=== PATIENT | female | born 1995 | race Caucasian/White ===

== ENCOUNTER 2016-10-28 11:04 | Outpatient (CLI) | payer OTHER ==
--- NOTE | 2016-10-28 12:45 | Non Stress Test Report ---
Non Stress Test Datetime Report Generated by CPN: 10/28/2016 12:44 DEMOGRAPHIC EGA NST: 40.2 INDICATION Indication for Study: Ordered by Provider MONITORING Monitor Explained: Monitor Explained; Test Explained; Patient Verbalized Understanding Time on Monitor: 10/28/2016 11:15 Time off Monitor: 10/28/2016 12:16 NST Duration: 61 NST INTERVENTIONS NST Interventions: PO Hydration; Reposition Patient Physician Notified NST: A EMMEL, CNM REVIEWED STRIP BABY A: [id number] BABY A Movement : Present Contraction Frequency : NONE FHR Baseline : 135 Accelerations : 15X15 Decelerations : None Variability : Moderate 6-25bpm NST Review: Meets Criteria for Reactive NST NST Review and Verified By : Darrell Thurman RN NST Results: Reactive NST REPORT Report Trigger: Send Report
== END 2016-10-28 12:25 | disposition home or self-care (01) ==
LOC: LC 11:04
PROVIDERS: ATTEND Obstetrics & Gynecology
PROC: 4A1HXCZ Monitoring of Products of Conception, Cardiac Rate, External Approach (ICD-10-PCS; principal; 2016-10-28)
DX: O48.0 Post-term pregnancy (principal); Z3A.40 40 weeks gestation of pregnancy
CPT/HCPCS: 59025

== ENCOUNTER 2016-10-31 16:28 | Outpatient (CLI) | payer OTHER ==
[2016-10-31 17:36] LABS: APPEARANCE,URINE SLIGHTLY-CLOUDY; BILIRUBIN,URINE NEGATIVE (NEGATIVE); GLUCOSE, URINE NEGATIVE (NEGATIVE); KETONES,URINE NEGATIVE (NEGATIVE); LEUKOCYTE ESTERASE,URINE MODERATE (NEGATIVE); NITRITE,URINE NEGATIVE (NEGATIVE); PROTEIN,URINE NEGATIVE (NEGATIVE); URINE SPECIFIC GRAVITY 1.011; UROBILINOGEN,URINE NEGATIVE mg/dL (<2.0)
[2016-10-31 17:54] LABS: URINE BARBITURATES SCREEN NEGATIVE; URINE METHADONE SCREEN NEGATIVE; URINE OPIATES LOW NEGATIVE; URINE PHENCYCLIDINE SCREEN NEGATIVE
== END 2016-10-31 17:08 | disposition home or self-care (01) ==
LOC: LC 16:28
PROVIDERS: ATTEND Student in an Organized Health Care Education/Training Program
PROC: 4A1HXCZ Monitoring of Products of Conception, Cardiac Rate, External Approach (ICD-10-PCS; principal; 2016-10-31)
DX: O48.0 Post-term pregnancy (principal); Z3A.40 40 weeks gestation of pregnancy
CPT/HCPCS: 59025; 80307; 81001

== ENCOUNTER 2016-11-03 18:38 | Inpatient (IN) | payer OTHER ==
[2016-11-03] MEDS ORDERED: RINGERS SOLUTION,LACTATED 300 ML IV ONE (19:15)
[2016-11-03] MEDS ORDERED: RINGERS SOLUTION,LACTATED 1,000 ML IV PRN (19:15)
[2016-11-03] MEDS ORDERED: DINOPROSTONE 10 MG VAGINAL INSERT.SR PV PRN (19:15)
[2016-11-03] MEDS ORDERED: OXYTOCIN/NORMAL SALINE 1,000 ML IV PRN (19:15)
[2016-11-03 19:54] LABS: APPEARANCE,URINE CLOUDY; BILIRUBIN,URINE NEGATIVE (NEGATIVE); GLUCOSE, URINE NEGATIVE (NEGATIVE); KETONES,URINE NEGATIVE (NEGATIVE); LEUKOCYTE ESTERASE,URINE LARGE (NEGATIVE); NITRITE,URINE NEGATIVE (NEGATIVE); PROTEIN,URINE NEGATIVE (NEGATIVE); URINE SPECIFIC GRAVITY 1.021; UROBILINOGEN,URINE NEGATIVE mg/dL (<2.0)
[2016-11-03] MEDS ORDERED: DINOPROSTONE 10 MG VAGINAL INSERT.SR ONE (19:55)
[2016-11-03 20:09] LABS: URINE BARBITURATES SCREEN NEGATIVE; URINE METHADONE SCREEN NEGATIVE; URINE OPIATES LOW NEGATIVE; URINE PHENCYCLIDINE SCREEN NEGATIVE
[2016-11-03 20:18] LABS: ABSOLUTE EOSINOPHILS # (AUTO) 0.1 10^3/uL (0.0-0.6); ABSOLUTE LYMPHOCYTES (AUTO) 2.2 10^3/uL (0.5-4.7); ABSOLUTE MONOCYTES (AUTO) 0.7 10^3/uL (0.1-1.4); ABSOLUTE NEUT (AUTO) 7.9 10^3/uL (1.7-8.2); BASOPHILS % (AUTO) 0.2 % (0-2); EOSINOPHILS % (AUTO) 0.5 % (0-6); HEMATOCRIT 38.2 % (36.0-47.0); HEMOGLOBIN 12.6 g/dL (12.0-15.5); HGB HCT DIFFERENCE -0.4; LYMPHOCYTES % (AUTO) 20.4 % (13-45); MEAN CORPUSCULAR HEMOGLOBIN 26.4 pg (27.0-33.4); MEAN CORPUSCULAR HGB CONC 33.1 g/dL (32.0-36.0); MEAN CORPUSCULAR VOLUME 80 fl (80-97); MONOCYTES % (AUTO) 6.2 % (3-13); RED BLOOD COUNT 4.78 10^6/uL (3.72-5.28); RED CELL DISTRIBUTION WIDTH 14.3 % (11.5-14.0); SEGMENTED NEUTROPHILS % (AUTO) 72.7 % (42-78); WHITE BLOOD COUNT 10.9 10^3/uL (4.0-10.5)
[2016-11-03] MEDS ORDERED: ZOLPIDEM TARTRATE 5 MG TABLET PO ONE (22:22)
[2016-11-03] MEDS ORDERED: ZOLPIDEM TARTRATE 5 MG TABLET ONE (22:32)
[2016-11-04] MEDS ORDERED: MISOPROSTOL 0.1 MG TABLET ONE ×2 (09:14→20:29)
[2016-11-04] MEDS: MISOPROSTOL 0.1 MG TABLET PO SCH ×2 (09:15→13:25)
--- NOTE | 2016-11-04 18:55 | L&D Progress Notes ---
PROGRESS NOTES Datetime Report Generated by CPN: 11/04/2016 18:55 PROGRESS NOTE Impression: Reassuring Heart Rate Procedures: Sterile Vag Exam Plan: Continue Present Management; Induction Vital Signs : Reviewed; Within Normal Limits Comment: Minimal change in cervical dilation after cytotec Cervidil over night Plan for pitocin in am VAGINAL EXAM Dilatation: 2 Dilatation: 1 Effacement: 80 Effacement: 0 Station: -1 Station: high Contractions: irregularg MEMBRANES Membranes: Intact FETUS A FHR - Baseline: 145 Monitoring: External US Variability: Moderate 6-25bpm Accelerations: 15X15 Decelerations: None FHR Category: Category I : 41.0 Presentation: Vertex SIGNATURE SIGNATURE: [id number];[id number] SIGNATURE: [id number] Assignment: Gil Arita DO Signature: with User ID: [email or web address] : with User ID: [email or web address]
[2016-11-04] MEDS ORDERED: ZOLPIDEM TARTRATE 5 MG TABLET PO ONE (20:46)
[2016-11-04] MEDS ORDERED: ZOLPIDEM TARTRATE 5 MG TABLET ONE (20:58)
[2016-11-04] MEDS ORDERED: DIPHENHYDRAMINE HCL 50 MG/ML VIAL IV ONE (21:46)
[2016-11-04] MEDS ORDERED: NALBUPHINE HCL INJ 10 MG/1 ML AMPULE INJ ONE (21:46)
[2016-11-04] MEDS ORDERED: DIPHENHYDRAMINE HCL 50 MG/ML VIAL ONE (21:50)
[2016-11-04] MEDS ORDERED: NALBUPHINE HCL INJ 10 MG/1 ML AMPULE ONE (21:50)
[2016-11-05] MEDS ORDERED: MISOPROSTOL 0.1 MG TABLET ONE (00:18)
[2016-11-05] MEDS ORDERED: PHENYLEPHRINE HCL INJ/PF 10 MG/1 ML SDV ONE (00:39)
[2016-11-05] MEDS ORDERED: FENTANYL CITRATE INJ/PF 100 MCG/2 ML AMPUL ONE ×2 (00:39→05:05)
[2016-11-05] MEDS ORDERED: EPHEDRINE SULFATE INJ 50 MG/1 ML AMPULE ONE ×2 (00:39→05:05)
[2016-11-05] MEDS ORDERED: BUPIVACAINE HCL 0.25 % INJ/PF (2.5 MG/1 ML) 30 ML VIAL ONE (00:40)
[2016-11-05] MEDS ORDERED: FENTANYL/BUPIVACAINE/NS/PF 200 MCG/100 ML RTUINJ EPI ONE (00:40)
[2016-11-05] MEDS ORDERED: MISOPROSTOL 0.2 MG TABLET ONE (00:42)
[2016-11-05] MEDS ORDERED: LIDOCAINE 1% INJ-PF (10 MG/ML) 30 ML SDV ONE (00:42)
[2016-11-05] MEDS ORDERED: OXYTOCIN/NORMAL SALINE 0 UNIT/0 ML RTUINJ ONE (00:42)
[2016-11-05] MEDS ORDERED: CITRIC ACID/SODIUM CITRATE ORAL SOLN 15 ML UDCUP ONE (04:48)
[2016-11-05] MEDS ORDERED: CLINDAMYCIN 900 MG/D5W RTU 50 ML IV ONE (04:48)
[2016-11-05] MEDS ORDERED: CITRIC ACID/SODIUM CITRATE ORAL SOLN 15 ML UDCUP PO ONE (04:58)
[2016-11-05] MEDS ORDERED: CLINDAMYCIN 900 MG/D5W RTU 50 ML IV PRN (04:58)
[2016-11-05] MEDS ORDERED: FENTANYL CITRATE INJ/PF 250 MCG/5 ML AMPULE ONE (05:05)
[2016-11-05] MEDS ORDERED: MIDAZOLAM 2 MG/2 ML INJ ONE (05:05)
[2016-11-05] MEDS ORDERED: OXYTOCIN 10 UNIT/ML VIAL ONE (05:05)
[2016-11-05] MEDS ORDERED: OXYTOCIN/NORMAL SALINE 20 UNIT/1,000 ML RTUINJ ONE (05:06)
[2016-11-05] MEDS ORDERED: ONDANSETRON HCL INJ/PF 4 MG/2 ML SDV ONE (05:06)
[2016-11-05] MEDS ORDERED: SODIUM BICARBONATE 8.4% INJ 50 MEQ/50 ML DISP.SYRIN ONE (05:10)
[2016-11-05] MEDS ORDERED: LIDOCAINE 2%/EPINEPHRINE INJ 20 ML VIAL ONE (05:10)
[2016-11-05] MEDS ORDERED: PROMETHAZINE HCL INJ 25 MG/1 ML VIAL IV PRN ×2 (05:11→05:59)
[2016-11-05] MEDS ORDERED: MEPERIDINE HCL/PF INJ 25 MG/1 ML DISP.SYRIN IV PRN (05:11)
[2016-11-05] MEDS ORDERED: DIPHENHYDRAMINE HCL 50 MG/ML VIAL IV PRN (05:11)
[2016-11-05] MEDS ORDERED: MORPHINE SULFATE 10 MG/ML INJ IV PRN (05:11)
[2016-11-05] MEDS ORDERED: FENTANYL CITRATE INJ/PF 100 MCG/2 ML AMPUL IV PRN ×3 (05:11)
[2016-11-05] MEDS ORDERED: DIPH/PERTUSS(ACELL)/TETANUS VAC/PF 0.5 ML SYR (>=10YO) IM PRN (05:59)
[2016-11-05] MEDS ORDERED: SIMETHICONE 80 MG TAB.CHEW PO PRN (05:59)
[2016-11-05] MEDS ORDERED: ACETAMINOPHEN 325 MG TABLET PO PRN (05:59)
[2016-11-05] MEDS ORDERED: OXYTOCIN/NORMAL SALINE 20 UNIT/1,000 ML RTUINJ IV PRN (05:59)
[2016-11-05] MEDS ORDERED: MEASLES,MUMPS&RUBELLA VACC/PF 0.5 ML VIAL SUBCUT PRN (05:59)
[2016-11-05] MEDS ORDERED: OXYCODONE-ACETAMINOPHEN 5-325 MG TABLET PO PRN (05:59)
--- NOTE | 2016-11-05 07:17 | Delivery Summary ---
Del Sum A-C Datetime Report Generated by CPN: 11/05/2016 07:17 DELIVERY PERSONNEL DELIVERY PERSONNEL: [id number];[id number];[id number] Delivery Doctor:: Gil Arita DO Anesthesiologist:: Ruth Ann Brantley MD PRICE LISTER:: Henry Simpson CRNA Labor and Delivery Nurse:: Suzi Olivares RN Neonatal Nurse Practitioner:: FREDDY Crawford Director Private/SYSTEMS DESIGNER: ST Ana Cristina Director Private/SYSTEMS DESIGNER: Erika Avery RADIATION ONCOLOGY NURSE Additional Personnel: : THELMA TonyA MATERNAL INFORMATION Delivery Anesthesia: Epidural Medications After Delivery: Pitocin Drip 20 Units/1000ml NSS Estimated Blood Loss (ml): 600 Maternal Complications: None LABOR SUMMARY EDC: 10/26/2016 00:00 No. Babies in Womb: 1 Attempted: No Labor Anesthesia: Epidural LABOR INFORMATION Reason for Induction: Post Dates Onset of Labor: 11/04/2016 22:43 Cervical Ripening Agents: Cervidil; Cytotec @ Oxytocin: N/A Group B Beta Strep: Negative (Annotations: Data stored by [facility] on behalf of user) Antibiotics # of Doses: n/a Antibiotics Time of Last Dose: n/a Steroids Given: None Reason Steroids Not Administered: Not Applicable MEMBRANES Membranes Rupture Method: Spontaneous Rupture of Membranes: 11/04/2016 22:43 Length of Rupture (hr): 6.73 Amniotic Fluid Color: Clear Amniotic Fluid Amount: Small Amniotic Fluid Odor: Normal STAGES OF LABOR Stage 3 hr: 0 Stage 3 min: 1 Total Time in Labor hr: 6 Total Time in Labor min: 45 VAGINAL DELIVERY Episiotomy: None Laceration Extension: N/A Laceration Type: None Laceration Repair: Not Applicable Sponge Count Correct: N/A Sharps Count Correct: N/A CSECTION DELIVERY Primary Indication: Nonreassuring Status CSection Urgency: Non-Scheduled CSection Incidence: Primary Labor: Labor Elective: Nonelective CSection Incision: Lower Uterine Transverse BABY A INFORMATION Infant Delivery Date/Time: 11/05/2016 05:27 Method of Delivery: Born in Route : No : N/A Forceps: N/A Vacuum Extraction: N/A Shoulder Dystocia : No PRESENTATION/POSITION BABY A Presentation: Cephalic Cephalic Presentation: Vertex Breech Presentation: N/A PLACENTA INFORMATION BABY A Placenta Delivery Time : 11/05/2016 05:28 Placenta Method of Delivery: Manual Removal Placenta Status: Delivered SCORES BABY A Heart Rate 1 min: >100 bpm Resp Effort 1 min: Good Cry Reflex Irritability 1 min: Cough or Sneeze or Pulls Away Muscle Tone 1 min: Active Motion Color 1 min: Blue/Pale Resuscitation Effort 1 min: Tactile Stimulation SCORE 1 MIN: 8 Heart Rate 5 min: >100 bpm Resp Effort 5 min: Good Cry Reflex Irritability 5 min: Cough or Sneeze or Pulls Away Muscle Tone 5 min: Active Motion Color 5 min: Body [place], Extremities Blue Resuscitation Effort 5 min: Tactile Stimulation SCORE 5 MIN: 9 INFORMATION BABY A Gestational Age at Delivery: 41.3 Gestational Status: Late Term- 41- 41.6 Weeks Infant Outcome : Liveborn Condition : Stable Sex: Female IDENTIFICATION BABY A Infant Verification Date/Time: 11/05/2016 05:35 ID Band Number: [id number] Mother's Name Verified: Yes RN Verifying : S. Lattibeaudeir, RN _ C. Curly, RN WEIGHT/LENGTH BABY A Infant Birthweight (gm): 2750 Weight (lb): 6 Infant Weight (oz): 1 Infant Length (in): 19.50 Infant Length (cm): 49.53 CORD INFORMATION BABY A No. Cord Vessels: 3 Nuchal Cord : Around Neck x1, Tight Cord Blood Taken: Yes-For Storage (Mom's Blood type +) Infant Suction: None ASSESSMENT BABY A Complications: Multiple Late Decels; Multiple Variable Decels Respirations: Appears Normal Lining Scrubber/ALS Called : No Transferred To: Nursery BABY B INFORMATION : N/A
--- NOTE | 2016-11-05 08:32 | Admission Physical ---
Datetime Report Generated by CPN: 11/05/2016 08:32 CURRENT ADMISSION Chief Complaint: Other Chief Complaint Other: post dates Indication for Induction: Post Dates Admit Plan: Admit to Unit; Initiate Labor Protocol ALLERGIES Medication Allergies: Yes Medication Allergies: Penicillins/WI/Hives (10/31/2016) Medication Allergies: Penicillins/WI/Hives (05/27/2014) Latex: No Latex Allergies Food Allergies: denies Environmental Allergies: denies OBSTETRICAL HISTORY EDC: 10/26/2016 00:00 : 1 Para: 0 Term: 0 : 0 SAB: 0 IAB: 0 Ectopic: 0 Livin Cesareans: 0 VBACs: 0 Multiple Births: 0 Gestational Diabetes: No Rh Sensitization: No Incompetent Cervix: No MI: No Infertility: No ART Treatment: No Uterine Anomaly: No IUGR: No Hx Previous C/S: No Macrosomia: No Hx Loss/Stillborn: No PIH: No Hx : No Placenta Previa/Abruption: No Depression/PP Depression: No PTL/PROM: No Post Hemorrhage: No Current Procedures: Ultrasound; NST Obstetrical History Comments: G1: current SEE RECORDS Alcohol: No Marijuana : No Cocaine: No Other Illicit Drugs: No Cigarettes: Never Smoker. [id number] MEDICAL HISTORY Diabetes: No Blood Transfusion: No Pulmonary Disease (Asthma, TB): No Breast Disease: No Hypertension: No Billing Associate Surgery: No Heart Disease: No Hosp/Surgery: No Autoimmune Disorder: No Anesthetic Complications: No Kidney Disease: No Abnormal Pap Smear: No Neuro/Epilepsy: No Psychiatric Disorders: No Other Medical Diseases: No Hepatitis/Liver Disease: No Significant Family History: No Varicosities/Phlebitis: No Trauma/Violence : No Thyroid Dysfunction: No Medical History Comments: colonoscopy/endoscopy: 2015, scoliosis INFECTIOUS HISTORY Gonorrhea: No Genital Herpes: No Chlamydia: No Tuberculosis: No Syphilis: No Hepatitis: No HIV/AIDS Exposure: No Rash or Viral Illness: No HPV: No PHYSICAL EXAM General: Normal HEENT: Normal Neurologic: Normal Thyroid: Normal Heart: Normal Lungs: Normal Breast: Deferred Back: Normal Abdomen: Normal Genitourinary Exam: Normal Extremities: Normal DTRs: Normal Pelvic Type: Adequate VAGINAL EXAM Dilatation: 2 Dilatation: 1 Effacement: 80 Effacement: 0 Station: -1 Station: high Contraction Comments: irregularg MEMBRANES Membranes: Intact FETUS A EGA: 41.1 Monitoring: External US FHR- Baseline: 150 Variability: Moderate 6-25bpm FHR Category: Category I Presentation: Vertex Admit Comment: EFW is 8.5 lbs PLANS FOR LABOR AND DELIVERY Labor and Delivery: None Pain Management: Epidural Feeding Preference: Formula Benefit of Breast Feed Discussed: Yes Circumcision: N/A INFORMED CONSENT Signature: with User ID: [email or web address]
[2016-11-05] MEDS: KETOROLAC TROMETHAMINE INJ/PF 30 MG/1 ML SDV IV SCH ×3 (09:09→22:08)
[2016-11-05] MEDS: PRENATAL VITAMIN W-O CA NO5/FE FUMARATE/FA CAPSULE PO SCH (09:09)
[2016-11-05] MEDS: DOCUSATE SODIUM 100 MG CAPSULE PO SCH ×2 (09:10→17:40)
[2016-11-05] MEDS: HYDROMORPHONE HCL INJ/PF 2 MG/ML AMPULE IV PRN ×2 (10:32→16:33)
[2016-11-05] MEDS: OXYCODONE-ACETAMINOPHEN 5-325 MG TABLET PO PRN (23:19)
[2016-11-06] MEDS: KETOROLAC TROMETHAMINE INJ/PF 30 MG/1 ML SDV IV SCH (06:01)
[2016-11-06] MEDS: OXYCODONE-ACETAMINOPHEN 5-325 MG TABLET PO PRN ×3 (06:40→20:07)
[2016-11-06 07:10] LABS: HEMATOCRIT 31.2 % (36.0-47.0); HGB HCT DIFFERENCE -0.3; MEAN CORPUSCULAR HEMOGLOBIN 26.6 pg (27.0-33.4); MEAN CORPUSCULAR HGB CONC 33.1 g/dL (32.0-36.0); MEAN CORPUSCULAR VOLUME 80 fl (80-97); RED BLOOD COUNT 3.89 10^6/uL (3.72-5.28); RED CELL DISTRIBUTION WIDTH 14.4 % (11.5-14.0); WHITE BLOOD COUNT 14.1 10^3/uL (4.0-10.5)
[2016-11-06 07:24] LABS: HEMOGLOBIN 10.3 g/dL (12.0-15.5)
--- NOTE | 2016-11-06 09:04 | PDOC PROGRESS REPORT ---
Subjective-OB Subjective: Post Delivery Day: 21 year old. Denies any needs at this time Physical Exam (OB) Vital Signs: Temp Pulse Resp BP Pulse Ox 97.4 F 80 15 116/68 100 11/06/16 08:19 11/06/16 08:19 11/06/16 08:19 11/06/16 08:19 11/06/16 08:19 Intake & Output 11/05/16 11/06/16 11/07/16 06:59 06:59 06:59 Intake Total 750 Output Total 2570 Balance -1820 - Dressing Removed: No - medipore dressing D&I, no drainage or swelling noted Incision: Dressing - Lochia Lochia Amount: Scant < 10 ml Lochia Color: Rubra/Red - Abdomen Description: Tender, Soft Hernia Present: No Bowel Sounds: Normoactive Flatus Presence: Present Stool: No Fundal Description: Firm, Midline Fundal Height: u/u - u/2 Objective-Diagnostic Laboratory: 11/06/16 06:52 11/06/16 06:52 WBC 14.1 H RBC 3.89 Hgb 10.3 L D Hct 31.2 L MCV 80 MCH 26.6 L MCHC 33.1 RDW 14.4 H Plt Count 123 L
[2016-11-06] MEDS: PRENATAL VITAMIN W-O CA NO5/FE FUMARATE/FA CAPSULE PO SCH (10:01)
[2016-11-06] MEDS: DOCUSATE SODIUM 100 MG CAPSULE PO SCH ×2 (10:01→17:34)
[2016-11-07] MEDS: OXYCODONE-ACETAMINOPHEN 5-325 MG TABLET PO PRN (06:57)
--- NOTE | 2016-11-07 09:30 | PDOC DISCHARGE SUMMARY ---
Final Diagnosis Discharge Date: 11/07/16 - Final Diagnosis (1) Acute blood loss anemia Is this a current diagnosis for this admission?: Yes (2) Delivery by emergency caesarean section Is this a current diagnosis for this admission?: Yes (3) Non-reassuring electronic monitoring tracing Is this a current diagnosis for this admission?: Yes Discharge Data - Discharge Medication Home Medications: Pnv No.122/Iron/Folic Acid [ Multi Tablet] 1 tab PO DAILY 10/31/16 Docusate Sodium [Colace 100 mg Capsule] 100 mg PO BID #60 capsule 11/07/16 Ferrous Sulfate [Feosol 325 mg Tablet] 325 mg PO DAILY #30 tab 11/07/16 Ibuprofen [Motrin 800 mg Tablet] 800 mg PO MEALS #90 tablet 11/07/16 Oxycodone HCl/Acetaminophen [Percocet 5-325 mg Tablet] 2 tab PO Q4HP PRN #30 tablet 11/07/16 Gestational Age: 41.3 Reason(s) for Admission: Induction of Labor Procedures: NST Intrapartum Procedure(s): : Low Cervical, Transverse - Data Baby 1 Female at 1 minute: 8 at 5 minutes: 9 Weight: 2750 kg Home with Mother: Yes Complications: No - Diagnosis Test Laboratory: Temp Pulse Resp BP Pulse Ox 98.6 F 107 H 15 120/76 97 11/07/16 07:47 11/07/16 07:47 11/07/16 07:47 11/07/16 07:47 11/07/16 07:47 11/03/16 11/03/16 11/06/16 19:08 19:41 06:52 RBC 4.78 3.89 Hgb 12.6 10.3 L D Hct 38.2 31.2 L Urine Opiates Screen NEGATIVE - Discharge information/Instructions Discharge Activity: Activity As Tolerated, Pelvic Rest, No tub bath Discharge Diet: Regular Disposition: HOME, SELF-CARE Follow up with: [facility] in: 1, Weeks
[2016-11-07] MEDS: PRENATAL VITAMIN W-O CA NO5/FE FUMARATE/FA CAPSULE PO SCH (10:02)
[2016-11-07] MEDS: DOCUSATE SODIUM 100 MG CAPSULE PO SCH (10:02)
[2016-11-07 10:44] VITALS: BP 120/74
--- NOTE | 2016-12-17 10:14 | OPERATIVE REPORT E ---
Operative Report NAME: JOSIAS HERNANDEZ : 1995 AGE: 21Y DATE OF SURGERY: 11/05/2016 ROOM: 222 PREOPERATIVE DIAGNOSIS: intolerance of labor. POSTOPERATIVE DIAGNOSIS: intolerance of labor. SURGEON: Gil Arita D.O. ELEVATOR CONDUCTOR: None. PROCEDURE: Primary low transverse section. ANESTHESIA: Epidural. COMPLICATIONS: None. PATHOLOGY: Placenta. ESTIMATED BLOOD LOSS: 600 mL. FINDINGS: 1. Viable female at 5:27 a.m. on 11/05/2016. Apgars 8 at one, 9 at five. 2. Loose nuchal cord x1. 3. Normal-appearing bilateral fallopian tubes and ovaries. DESCRIPTION OF PROCEDURE: The patient was taken to the operating room where she was placed in the dorsal supine position upon the operating table with a leftward tilt. Her epidural anesthesia was found to be adequate. She was then prepped and draped in a normal sterile fashion. A scalpel was then used to make a Pfannenstiel skin incision. The skin incision was carried down to the subcutaneous tissues to the layer of the fascia. The fascia was then incised in the midline. Fascial incision was then extended bilaterally using the Bovie cautery. The superior fascial edge was grasped with Geovany clamps, elevated, and the rectus muscles dissected off sharply and bluntly. Attention was then turned to the inferior fascial edge, which was grasped with Geovany clamps, elevated, and the rectus muscles dissected off sharply and bluntly. Rectus muscles were then in the midline, peritoneum identified and entered bluntly with the surgeon's hand. The bladder blade was inserted. A scalpel was then used to make a low transverse hysterotomy incision. The was found to be in cephalic position. The head was delivered atraumatically without difficulty. A loose nuchal cord was noticed and easily reduced. Rest of the infant's body was delivered atraumatically and without difficulty. The nose and mouth were suctioned. The cord was clamped and cut and the was handed off to the awaiting nurses. Cord blood was obtained. The placenta was then manually removed from the uterus. The uterus was then exteriorized and cleared of all clots and debris. The hysterotomy incision was then reapproximated using 2 layers of 1-0 Vicryl in running, locking fashion followed closure of the second layer, excellent hemostasis was noted. The uterus was then returned to the abdomen. Again, the hysterotomy incision was reinspected and found to have excellent hemostasis. Rectus muscles were then reapproximated using 1-0 Vicryl interrupted sutures. The fascia was then closed using 1-0 Vicryl in running, non-locking fashion. The subcutaneous spaces were made hemostatic using Bovie cautery. The skin was closed with absorbable shaquille, covered with an OpSite and then with a pressure dressing. At this point in time, the procedure was terminated. All sponge, lap, and needle counts were correct x2. The patient tolerated the procedure well. The patient was taken to the recovery room in stable condition. DICTATING PHYSICIAN: Gil Arita DO [id number] PHY#: [id number] ID: [id number] JOB#: [id number] ACCT: [id number] cc:Gil Arita D.O. >
== END 2016-11-07 11:50 | disposition home or self-care (01) | DRG 765 ==
LOC: LR 18:38 → 2S 11-05 08:03
PROVIDERS: ADMIT Obstetrics & Gynecology; ATTEND Obstetrics & Gynecology
PROC: 3E0P7GC Introduction of Other Therapeutic Substance into Female Reproductive, Via Natural or Artificial Opening (ICD-10-PCS; 2016-11-03)
PROC: 10D00Z1 Extraction of Products of Conception, Low, Open Approach (ICD-10-PCS; principal; 2016-11-05)
PROC: 4A1HXCZ Monitoring of Products of Conception, Cardiac Rate, External Approach (ICD-10-PCS; 2016-11-05)
DX: O76 Abnormality in fetal heart rate and rhythm complicating labor and delivery (principal); D62 Acute posthemorrhagic anemia; O48.0 Post-term pregnancy; O69.81X0 Labor and delivery complicated by cord around neck, without compression, not applicable or unspecified; O99.02 Anemia complicating childbirth; Z3A.41 41 weeks gestation of pregnancy; Z37.0 Single live birth; Z88.0 Allergy status to penicillin
CPT/HCPCS: 1961; 36415; 80307; 81005; 85025; 85027; 86592; 86850; 86900; 86901; 88307; 94799; J1170; J1200; J1885; J2250; J2300; J2370; J2405; J2590; J3010; J3490

== ENCOUNTER 2018-12-03 05:01 | Inpatient (IN) | payer BC ==
[2018-12-02 11:05] LABS: ABSOLUTE EOSINOPHILS # (AUTO) 0.1 10^3/uL (0.0-0.6); ABSOLUTE LYMPHOCYTES (AUTO) 1.7 10^3/uL (0.5-4.7); ABSOLUTE MONOCYTES (AUTO) 0.4 10^3/uL (0.1-1.4); ABSOLUTE NEUT (AUTO) 6.8 10^3/uL (1.7-8.2); BASOPHILS % (AUTO) 0.2 % (0-2); EOSINOPHILS % (AUTO) 0.7 % (0-6); HEMATOCRIT 36.2 % (36.0-47.0); LYMPHOCYTES % (AUTO) 18.7 % (13-45); MEAN CORPUSCULAR HEMOGLOBIN 26.6 pg (27.0-33.4); MEAN CORPUSCULAR HGB CONC 33.2 g/dL (32.0-36.0); MEAN CORPUSCULAR VOLUME 80 fl (80-97); MONOCYTES % (AUTO) 4.9 % (3-13); PLATELET COUNT 135 10^3/uL (150-450); RED BLOOD COUNT 4.53 10^6/uL (3.72-5.28); RED CELL DISTRIBUTION WIDTH 14.4 % (11.5-14.0); SEGMENTED NEUTROPHILS % (AUTO) 75.5 % (42-78); TOTAL CELLS COUNTED % (AUTO) 100 %
[2018-12-02 11:31] LABS: APPEARANCE,URINE CLOUDY; BILIRUBIN,URINE NEGATIVE (NEGATIVE); COLOR,URINE AMBER; GLUCOSE, URINE NEGATIVE (NEGATIVE); KETONES,URINE NEGATIVE (NEGATIVE); LEUKOCYTE ESTERASE,URINE MODERATE (NEGATIVE); NITRITE,URINE NEGATIVE (NEGATIVE); PROTEIN,URINE 30 mg/dL (NEGATIVE); URINE SPECIFIC GRAVITY 1.021
[2018-12-02 11:51] LABS: URINE AMPHETAMINES SCREEN NEGATIVE; URINE BARBITURATES SCREEN NEGATIVE; URINE BENZODIAZEPINES SCREEN NEGATIVE; URINE COCAINE SCREEN NEGATIVE; URINE MARIJUANA (THC) SCREEN NEGATIVE; URINE METHADONE SCREEN NEGATIVE; URINE PHENCYCLIDINE SCREEN NEGATIVE
[~2018-12-03 05:01] MED LIST: AZITHROMYCIN 500 MG in DEXTROSE 5%-WATER 250 ML IV PRN; LIDOCAINE 0.5% INJ-PF (5 MG/ML) 50 ML SDV SUBCUT PRN; RINGERS SOLUTION,LACTATED 1,500 ML IV PRN
[2018-12-03] MEDS: LACTATED RINGERS 1000 ML IV PRN ×2 (05:50→17:19)
[2018-12-03] MEDS ORDERED: EPHEDRINE SULFATE INJ 50 MG/1 ML AMPULE ONE (07:02)
[2018-12-03] MEDS ORDERED: OXYTOCIN 10 UNIT/ML VIAL ONE ×2 (07:02→07:15)
[2018-12-03] MEDS ORDERED: KETOROLAC TROMETHAMINE INJ/PF 30 MG/1 ML SDV ONE (07:02)
[2018-12-03] MEDS ORDERED: FENTANYL CITRATE INJ/PF 100 MCG/2 ML AMPUL ONE (07:02)
[2018-12-03] MEDS ORDERED: OXYTOCIN/NORMAL SALINE 20 UNIT/1,000 ML RTUINJ ONE (07:03)
[2018-12-03] MEDS ORDERED: MIDAZOLAM 2 MG/2 ML INJ ONE (07:03)
[2018-12-03] MEDS ORDERED: ACETAMINOPHEN 1,000 MG/100 ML RTUPB IV ONE (07:03)
[2018-12-03] MEDS ORDERED: ONDANSETRON HCL INJ/PF 4 MG/2 ML SDV ONE (07:03)
[2018-12-03] MEDS ORDERED: MORPHINE SULFATE 10 MG/ML INJ IV PRN (08:08)
[2018-12-03] MEDS ORDERED: DIPHENHYDRAMINE HCL 50 MG/ML VIAL IV PRN (08:08)
[2018-12-03] MEDS ORDERED: FENTANYL CITRATE INJ/PF 100 MCG/2 ML AMPUL IV PRN ×3 (08:08)
[2018-12-03] MEDS ORDERED: PROMETHAZINE HCL INJ 25 MG/1 ML VIAL IV PRN ×3 (08:08→08:21)
[2018-12-03] MEDS ORDERED: OXYCODONE-ACETAMINOPHEN 5-325 MG TABLET PO PRN ×3 (08:08→08:21)
[2018-12-03] MEDS ORDERED: MEPERIDINE HCL/PF INJ 25 MG/1 ML DISP.SYRIN IV PRN (08:08)
--- NOTE | 2018-12-03 08:20 | PDOC DELIVERY SUMMARY ---
Delivery Summary - Maternal Hx : II Hx # Term Pregnancies: 1 KIRAN: 12/10/18 Gestational Age: 39w Risk Factors: Previous Ruptured Membranes: AROM Fluids: Clear - Delivery Labor: Not In Labor Presentation: Vertex Heart Rate Monitoring: Done Pre-Operatively Uterine Contraction Monitoring: External Support Person Present: Yes Location: OR : Scheduled Placenta: Within Normal Limits Number of Vessels (Cord): 3 - Medications Type of Anesthesia:: Spinal
[2018-12-03] MEDS ORDERED: DIPH/PERTUSS(ACELL)/TETANUS VAC/PF 0.5 ML SYR (>=10YO) IM PRN (08:21)
[2018-12-03] MEDS ORDERED: MORPHINE SULFATE 10 MG/ML INJ IM PRN (08:21)
[2018-12-03] MEDS ORDERED: ACETAMINOPHEN 325 MG TABLET PO PRN (08:21)
[2018-12-03] MEDS ORDERED: OXYTOCIN/NORMAL SALINE 20 UNIT/1,000 ML RTUINJ IV PRN (08:21)
[2018-12-03] MEDS ORDERED: SIMETHICONE 80 MG TAB.CHEW PO PRN (08:21)
[2018-12-03] MEDS ORDERED: ACETAMINOPHEN 1,000 MG/100 ML RTUPB IV PRN (08:21)
[2018-12-03] MEDS ORDERED: MEASLES,MUMPS&RUBELLA VACC/PF 0.5 ML VIAL SUBCUT PRN (08:21)
[2018-12-03] MEDS: DOCUSATE SODIUM 100 MG CAPSULE PO SCH ×2 (11:51→17:19)
[2018-12-03] MEDS: PRENATAL VITAMIN W DHA CAPSULE PO SCH (11:58)
[2018-12-03] MEDS: OXYCODONE-ACETAMINOPHEN 5-325 MG TABLET PO PRN ×3 (12:02→21:26)
[2018-12-03] MEDS: KETOROLAC TROMETHAMINE INJ/PF 30 MG/1 ML SDV IV SCH ×2 (15:28→21:05)
[2018-12-04] MEDS: OXYCODONE-ACETAMINOPHEN 5-325 MG TABLET PO PRN ×4 (04:24→21:43)
[2018-12-04] MEDS: KETOROLAC TROMETHAMINE INJ/PF 30 MG/1 ML SDV IV SCH (05:52)
[2018-12-04 07:05] LABS: HEMATOCRIT 30.4 % (36.0-47.0); HEMOGLOBIN 10.1 g/dL (12.0-15.5); MEAN CORPUSCULAR HGB CONC 33.2 g/dL (32.0-36.0); MEAN CORPUSCULAR VOLUME 82 fl (80-97); PLATELET COUNT 101 10^3/uL (150-450); RED BLOOD COUNT 3.73 10^6/uL (3.72-5.28); RED CELL DISTRIBUTION WIDTH 14.2 % (11.5-14.0); WHITE BLOOD COUNT 10.7 10^3/uL (4.0-10.5)
--- NOTE | 2018-12-04 09:58 | PDOC PROGRESS REPORT ---
Subjective-OB Progress Note for:: 12/04/18 - POD #1, doing well, s/p Rpt , bottle feeding, B+, Rubella Immune Physical Exam (OB) Vital Signs: Temp Pulse Resp BP Pulse Ox 97.6 F 73 20 119/82 97 12/04/18 07:57 12/04/18 07:57 12/04/18 07:57 12/04/18 07:57 12/04/18 07:57 Intake & Output 12/03/18 12/04/18 12/05/18 06:59 06:59 06:59 Intake Total 4940 Output Total 1992 Balance 2947 Weight 75.296 kg - General General Appearance: Appears well, Alert In distress: None - PIH/Pre-Eclampsia DTR's: 1 + Clonus: Negative Headache: Absent Epigastric Pain: No Visual Changes: No - Dressing Removed: No Incision: Dressing Closure Type: pressure - Lochia Lochia Amount: Scant < 10 ml Lochia Color: Rubra/Red - Abdomen Description: Soft, Round Hernia Present: No Fundal Description: Firm, Midline Fundal Height: u/u - u/2 - Respiratory Respiratory Status: No respiratory distress Breath sounds: Clear - Cardiovascular Rhythm: Regular Heart Sounds: Normal auscultation - Abdominal Inspection: Normal Distension: No distension Tenderness: Nontender Abdominal Notes: +bowel sounds - Extremities Upper extremity: Normal inspection Lower extremities: Edema - trace - Neurological Cognition: Normal Orientation: AAOx4 - Psychological Associated symptoms: Normal affect, Normal mood - Skin Skin Temperature: Warm Skin Moisture: Dry Objective-Diagnostic Laboratory: 12/04/18 06:38 12/04/18 06:38 WBC 10.7 H RBC 3.73 Hgb 10.1 L Hct 30.4 L MCV 82 MCH 27.0 MCHC 33.2 RDW 14.2 H Plt Count 101 L Assessment and Plan(PN) - Assessment and Plan (1) Acute blood loss anemia Is this a current diagnosis for this admission?: Yes (2) Delivery by emergency caesarean section Is this a current diagnosis for this admission?: Yes (3) Non-reassuring electronic monitoring tracing Is this a current diagnosis for this admission?: Yes (4) Qualifiers: Weeks of gestation: 39 weeks Qualified Code(s): Z3A.39 - 39 weeks gestation of Is this a current diagnosis for this admission?: Yes - Time Spent with Patient Time with patient: Less than 15 minutes Medications reviewed and adjusted accordingly: Yes - Disposition Anticipated Discharge: Home Within: within 24 hours
[2018-12-04] MEDS: PRENATAL VITAMIN W DHA CAPSULE PO SCH (10:15)
[2018-12-04] MEDS: DOCUSATE SODIUM 100 MG CAPSULE PO SCH ×2 (10:15→17:10)
[2018-12-04] MEDS: IBUPROFEN 800 MG TABLET PO SCH ×3 (12:10→23:45)
[2018-12-05] MEDS: IBUPROFEN 800 MG TABLET PO SCH ×2 (06:54→11:58)
--- NOTE | 2018-12-05 10:28 | PDOC DISCHARGE SUMMARY ---
Final Diagnosis Discharge Date: 12/05/18 - POD #2, doing well, desires to go home today. Rpt c- section, bottlefeeding - Final Diagnosis (1) Acute blood loss anemia Is this a current diagnosis for this admission?: Yes (2) Delivery by emergency caesarean section Is this a current diagnosis for this admission?: Yes (3) Non-reassuring electronic monitoring tracing Is this a current diagnosis for this admission?: Yes (4) Is this a current diagnosis for this admission?: Yes Discharge Data - Discharge Medication Prescriptions: Ibuprofen [Motrin 800 mg Tablet] 800 mg PO Q6 #60 tablet Home Medications: No122/Iron/Folic Acid [ Multi Tablet] 1 tab PO DAILY 10/31/16 Ibuprofen [Motrin 800 mg Tablet] 800 mg PO Q6 #60 tablet 12/04/18 Oxycodone HCl/Acetaminophen [Percocet 5-325 mg Tablet] 1 tab PO Q4HP PRN #30 tablet 12/04/18 Reason(s) for Admission: Ceasarean Section-Repeat Procedures: NST Intrapartum Procedure(s): : Low Cervical, Transverse - Diagnosis Test Laboratory: Temp Pulse Resp BP Pulse Ox 97.7 F 71 18 113/59 L 100 12/05/18 07:21 12/05/18 07:21 12/05/18 07:21 12/05/18 07:21 12/05/18 07:21 12/02/18 12/02/18 12/04/18 10:07 10:07 06:38 RBC 4.53 3.73 Hgb 12.0 10.1 L Hct 36.2 30.4 L Urine Opiates Screen NEGATIVE - Discharge information/Instructions Discharge Activity: Activity As Tolerated, No Driving, No Lifting Over 10 Pounds, Pelvic Rest Discharge Diet: As Tolerated, Regular Disposition: HOME, SELF-CARE Follow up with: [facility] in: 1, Weeks
[2018-12-05] MEDS: OXYCODONE-ACETAMINOPHEN 5-325 MG TABLET PO PRN ×2 (10:58→15:04)
[2018-12-05] MEDS: PRENATAL VITAMIN W DHA CAPSULE PO SCH (10:58)
[2018-12-05] MEDS: DOCUSATE SODIUM 100 MG CAPSULE PO SCH (10:58)
[2018-12-05 13:22] VITALS: BP 124/69
--- NOTE | 2018-12-07 08:36 | OPERATIVE REPORT E ---
Operative Report NAME: JOSIAS MARIN : 1995 AGE: 23Y DATE OF SURGERY: 12/03/2018 ROOM: 222 PREOPERATIVE DIAGNOSIS: Intrauterine (IUP) at term, requires section. SURGERY: Repeat low transverse C section, delivery of a viable female 2545 g, of 8 and 9. SURGEON: Thony CAMPBELL M.D. ESTIMATED BLOOD LOSS: Less than 600 mL. TISSUE REMOVED: Placenta. ANESTHESIA: Spinal. PROCEDURE: The patient was placed in the supine position, rolled on the right side, prepped and draped in sterile fashion. Pfannenstiel was made through an existing Pfannenstiel eschar and incision extended through subcutaneous tissue to fascia. Fascia sharply divided. Rectus muscle was sharply divided. Parietal peritoneum was entered with sharp dissection. The uterus was nicked in the midline, extended bilaterally. The was then delivered through the uterine abdominal incision. Nose and mouth suctioned with bulb syringe. Cord was clamped. The was passed from the table. Placenta was manually extracted. Uterus closed in 2 layers of running stitches of 0 Vicryl and a second layer of stitch imbricating the first layer. Two areas of bleeding were noted, controlled with [id number] sutures of 2-0 Vicryl. Hemostasis was noted. Fascia closed with 0 Vicryl and skin was closed with subcutaneous absorbable shaquille. Her urine remained clear throughout the procedure. She was taken to recovery in good condition. The infant went to nursery in good condition. DICTATING PHYSICIAN: Thony CAMPBELL M.D. [id number] Y#: [id number] ID: [id number] JOB#: [id number] ACCT: [id number] cc:Thony CAMPBELL M.D. >
== END 2018-12-05 15:45 | disposition home or self-care (01) | DRG 787 ==
LOC: 2S 05:01
PROVIDERS: ADMIT Obstetrics & Gynecology Gynecology; ATTEND Obstetrics & Gynecology Gynecology
PROC: 4A1HXCZ Monitoring of Products of Conception, Cardiac Rate, External Approach (ICD-10-PCS; 2018-12-03)
PROC: 10D00Z1 Extraction of Products of Conception, Low, Open Approach (ICD-10-PCS; principal; 2018-12-03 07:45)
DX: O76 Abnormality in fetal heart rate and rhythm complicating labor and delivery (principal); D62 Acute posthemorrhagic anemia; O90.81 Anemia of the puerperium; Z3A.39 39 weeks gestation of pregnancy; Z37.0 Single live birth
CPT/HCPCS: 1961; 36415; 80307; 81001; 85025; 85027; 86850; 86900; 86901; 94799; J0131; J0456; J1885; J2250; J2405; J2590; J3010; J3490; J7060; J7120